=== PATIENT | female | born 1985 | race Two or more races ===

== ENCOUNTER 2024-09-14 16:20 | Emergency (ER) | payer OTHER, SELFPAY ==
--- NOTE | ~2024-09-14 | XR_ITS ---
CLINICAL HISTORY: pain 1 view chest x-ray Comparison: None Findings: The lungs are clear. Normal size heart. No acute fracture. IMPRESSION: 1. No acute findings. This document has been electronically signed by: Darwin Krishna MD on 09/14/2024 18:22:30
--- NOTE | 2024-09-14 16:22 | ECG_ITS ---
Test Reason : CP Blood Pressure : */* mmHG Vent. Rate : 69 BPM Atrial Rate : 69 BPM P-R Int : 142 ms QRS Dur : 86 ms QT Int : 402 ms P-R-T Axes : 56 60 32 degrees QTcB Int : 430 ms Normal sinus rhythm Possible Left atrial enlargement T wave abnormality, consider anterior ischemia Abnormal ECG No previous ECGs available Referred By: Generic ED Physician Electronically Signed By: Edilberto Corbett
[2024-09-14 16:43] VITALS: BP 116/83; PULSE 73; RESP 18; TEMP 37.1; O2SAT 100; BMI 27.4
--- NOTE | 2024-09-14 16:48 | ED_ITS ---
HPI - Chest Pain General Chief Complaint: Chest Pain Stated Complaint: Chest pain/Sent from Urgent care Time Seen by Provider: 09/14/24 18:31 Source: patient Limitations: no limitations History of Present Illness ED Provider: Meagan Lee PA-C HPI narrative: 39-year-old female with a history of white coat hypertension, family history of coronary artery disease, presents with chest pain. Patient states she was chasing her 2-year-old child, she abruptly shut a door then developed left anterior chest tightness and discomfort that radiated to the neck and left upper extremity. Pain worse with movement and palpation of chest wall. Denies shortness of breath, diaphoresis, nausea vomiting. Related Data Allergies Allergy/AdvReac Type Severity Reaction Status Date / Time No Known Allergies Allergy Verified 09/14/24 16:47 Review of Systems 2 Review of Systems: Yes all other systems are reviewed and are negative Constitutional: Constitutional: Denies fatigue and Denies fever(s) ENT: Reports neck pain Cardiovascular: Cardiovascular: Reports chest pain and Denies dyspnea Respiratory: Respiratory: Denies cough and Denies dyspnea Gastrointestinal: Gastrointestinal: Denies abdominal pain, Denies nausea and Denies vomiting Musculoskeletal: Musculoskeletal: Reports arthralgias, Denies joint swelling, Reports neck pain, Denies numbness and Denies tingling Neurologic: Denies numbness and Denies tingling Endocrine: Endocrine: Denies fatigue PMFSH Past Medical History Attestation statement: The following information was validated with the patient. Social History Social History Advance Directives: No Advance Directives Information Provided: No Do you have a plan to hurt others: No Plan Physical Exam 2 Vital Signs: Vital Signs: Last Vital Signs Temp 97.8 F 09/14/24 18:32 Pulse 67 09/14/24 18:32 Resp 18 09/14/24 18:32 BP 166/99 H 09/14/24 18:32 Pulse Ox 100 09/14/24 18:32 O2 Del Method Room Air 09/14/24 18:32 BMI result Body Mass Index 27.4 Const: Other: Alert Orientation/consciousness: patient oriented x3 Chest: Other: Pain elicited left anterior chest wall with palpation and movement Resp: Effort & Inspection: normal respiratory effort Cardio: Other: Normal peripheral perfusion Skin: Other: Warm dry no rash Neuro: General: patient oriented x3, gait normal, no focal motor deficits and CN's II-XI intact bilaterally Psych: Other: Cooperative Course Course Course Narrative: This is a rapid medical exam performed by Meagan Lee PA-C. The patient is a 39-year-old female with strong family history for CAD who presents with chest pain. Patient states she was at home, she forcefully shut a door then developed left upper anterior chest discomfort with radiation to the neck in the arm. The pain still remains reproducible with movement and palpation. We will be screening basic labs, a troponin, EKG and chest x-ray. The patient was stable and can return to the waiting room pending her full medical assessment. Medical Decision Making Medical Decision Making MDM Narrative: 39-year-old female with a history of white coat hypertension, family history of coronary artery disease, presents with chest pain. Patient states she was chasing her 2-year-old child, she abruptly shut a door then developed left anterior chest tightness and discomfort that radiated to the neck and left upper extremity. Pain worse with movement and palpation of chest wall. Denies shortness of breath, diaphoresis, nausea vomiting. Problem: White coat hypertension, family history of coronary artery disease History: Per patient I have considered the following differential diagnoses: Chest wall strain, rib fracture, ACS Plan: ACS was considered given the patient's strong family history, screening labs including cardiac enzyme and EKG were obtained. A chest x-ray was obtained as well. Her exam was most consistent with chest wall strain, not ACS. She herself has no risk factors for coronary artery disease. We will send with home care instructions. I have independently reviewed the following tests: Labs: No leukocytosis, stable anemia, no electrolyte abnormality, cardiac enzyme negative negative EKG: Normal sinus rhythm, rate of 69, no active ischemic changes no ectopy, QTC 430 Chest x-ray:Findings: The lungs are clear. Normal size heart. No acute fracture. IMPRESSION: 1. No acute findings. Lab Data 09/14/24 16:52 09/14/24 16:52 Labs: Lab Results 09/14/24 Range/Units 16:52 WBC 8.2 (4.8-10.8) X10*3/uL RBC 4.30 (4.20-5.50) X10*6/uL Hgb 9.2 L (12.0-16.0) g/dl Hct 29.6 L (37.0-47.0) % MCV 68.8 L (80.0-98.0) fL MCH 21.4 L (27.0-33.0) pg MCHC 31.1 (31.0-35.0) g/dl RDW 17.2 H (11.0-16.0) % Plt Count 388 (160-400) X10*3/uL MPV 9.6 (9.4-12.3) fL Immature Gran % (Auto) 0.2 (0.0-0.4) % Neut % (Auto) 73.6 H (45-73) % Lymph % (Auto) 18.7 L (20-40) % [place] % (Auto) 4.0 (2-11) % Eos % (Auto) 2.3 (0-4) % Baso % (Auto) 1.2 (0-2) % Lymph # (Auto) 1.5 (1.2-4.9) X10*3/uL [place] # (Auto) 0.3 (0.1-1.2) X10*3/uL Eos # (Auto) 0.2 (0.0-0.4) X10*3/uL Baso # (Auto) 0.1 (0.0-0.2) X10*3/uL Abs Immat Gran (auto) 0.02 (0.00-0.03) X10*3/uL Absolute Neuts (auto) 6.0 (2.0-8.3) x10*3/uL Absolute Nucleated RBC 0.000 (0.0-0.012) X10*3/uL Nucleated RBC % (auto) 0.0 (0.0-0.2) /100WBC Sodium 140 (135-145) mmol/L Potassium 3.6 (3.3-5.1) mmol/L Chloride 107 (96-108) mmol/L Carbon Dioxide 26 (22-29) mmol/L Anion Gap 11 L (12-20) BUN 16 (9-16) mg/dL Creatinine 0.74 (0.5-1.4) mg/dL Estim Creat Clear Calc 111.8 Estimated GFR > 60 Random Glucose 145 H (60-115) mg/dL Calcium 9.1 (8.4-10.2) mg/dL Magnesium 2.1 (1.6-2.6) mg/dL Total Bilirubin 0.2 (0.0-1.0) mg/dL AST 29 (5-31) U/L ALT 26 (0-31) U/L Alkaline Phosphatase 79 (39-117) U/L Troponin I High Sens < 2.7 (<3.5-17.0) ng/L Total Protein 7.9 (6.5-8.0) g/dL Albumin 4.1 (3.5-5.0) g/dL Lipase 21 (8-78) U/L Beta HCG, Quant < 2 mIU/mL Discharge Plan Discharge Clinical Impression: Strain of chest wall Patient Disposition: Home, Self-Care Instructions: Muscle Strain (ED), Iron Rich Diet (ED), Iron Deficiency Anemia (ED), Chest Wall Pain (ED) Additional Instructions: All of your screening labs, with the exception of your blood counts, including a cardiac enzymes were negative. You were noted to be mildly anemic, you need to follow up with primary care to initiate iron supplementation. There was no concerning changes on your EKG in the chest x-ray is clear. Your exam is most consistent with chest wall strain. See home care instructions. You can use [id number] Tylenol 1000 mg taken every 8 hours, alternated with [id number] ibuprofen 600 mg taken every 6 hours with food. Follow up with primary care as needed. Print Language: Frisian
[2024-09-14 17:00] LABS: MANUAL DIFF FLAG NO
[2024-09-14 17:03] LABS: Basophils Absolute Auto 0.1 X10*3/uL (0.0-0.2); Basophils Percent Auto 1.2 % (0-2); Eosinophils Absolute Auto 0.2 X10*3/uL (0.0-0.4); Eosinophils Percent Auto 2.3 % (0-4); Hematocrit 29.6 % (37.0-47.0); Hemoglobin 9.2 g/dl (12.0-16.0); Imm Gran Abs Auto 0.02 X10*3/uL (0.00-0.03); Imm Gran Pct Auto 0.2 % (0.0-0.4); Lymphocytes Absolute Auto 1.5 X10*3/uL (1.2-4.9); Lymphocytes Percent Auto 18.7 % (20-40); Mean Corpuscular HGB Conc 31.1 g/dl (31.0-35.0); Mean Corpuscular Hemoglobin 21.4 pg (27.0-33.0); Mean Corpuscular Volume 68.8 fL (80.0-98.0); Mean Platelet Volume 9.6 fL (9.4-12.3); Monocytes Absolute Auto 0.3 X10*3/uL (0.1-1.2); Neutrophils Percent Auto 73.6 % (45-73); Platelet Count 388 X10*3/uL (160-400); Red Cell Distribution Width 17.2 % (11.0-16.0); White Blood Count 8.2 X10*3/uL (4.8-10.8)
[2024-09-14 17:17] LABS: Alanine Aminotransferase 26 U/L (0-31); Albumin Level 4.1 g/dL (3.5-5.0); Anion Gap 11 (12-20); Aspartate Amino Transferase 29 U/L (5-31); Bilirubin Total 0.2 mg/dL (0.0-1.0); Blood Urea Nitrogen 16 mg/dL (9-16); Calcium 9.1 mg/dL (8.4-10.2); Carbon Dioxide 26 mmol/L (22-29); Chloride 107 mmol/L (96-108); Creatinine Clr Calc Pharmacy 111.8; Estimated Glomerular Filt Rate > 60; Glucose Random 145 mg/dL (60-115); Lipase 21 U/L (8-78); Magnesium 2.1 mg/dL (1.6-2.6); Potassium 3.6 mmol/L (3.3-5.1); Sodium 140 mmol/L (135-145); Total Protein 7.9 g/dL (6.5-8.0)
[2024-09-14 17:29] LABS: HCG Quantitative < 2 mIU/mL; Troponin-I High Sensitivity < 2.7 ng/L (<3.5-17.0)
[2024-09-14 17:42] LABS: Alkaline Phosphatase 79 U/L (39-117)
[2024-09-14 18:32] VITALS: BP 166/99; PULSE 67; RESP 18; TEMP 36.6; O2SAT 100
[2024-09-14 18:48] VITALS: BP 166/99; PULSE 67; RESP 18; TEMP 36.6; O2SAT 100
== END 2024-09-14 18:49 | disposition home or self-care (01) ==
PROVIDERS: Physician Assistant Medical; Emergency Provider Emergency Medicine
DX: S29.011A Strain of muscle and tendon of front wall of thorax, initial encounter (principal); X58.XXXA Exposure to other specified factors, initial encounter; Y93.89 Activity, other specified; Y92.9 Unspecified place or not applicable; Y99.9 Unspecified external cause status; D64.9 Anemia, unspecified; R07.9 Chest pain, unspecified
CPT/HCPCS: 36415; 71045; 80053; 83690; 83735; 84484; 84702; 85025; 93005; 99283

== ENCOUNTER → 2024-09-14 16:22 | Outpatient (BNV) | payer OTHER, SELFPAY | PROVIDERS: Emergency Provider Emergency Medicine; Visit Provider Internal Medicine Cardiovascular Disease | DX: R94.31 Abnormal electrocardiogram [ECG] [EKG] (principal); R07.9 Chest pain, unspecified | CPT/HCPCS: 93010 ==

== ENCOUNTER → 2024-09-14 16:47 | Outpatient (BNV) | payer OTHER, SELFPAY | PROVIDERS: Emergency Provider Emergency Medicine; Visit Provider Radiology Diagnostic Radiology | DX: R07.9 Chest pain, unspecified (principal) | CPT/HCPCS: 71045 ==